=== PATIENT | male | born 1965 | race Caucasian/White ===

== ENCOUNTER 2018-06-23 13:43 | Emergency (ER) | payer OTHER ==
[~2018-06-23] VITALS: Ht 167.6 cm; Wt 94.3 kg
[~2018-06-23 13:43] MED LIST: BUDESONIDE0.5 MG/2 M IH; PROVENTIL3 ML/2.5 M IH; ZITHROMAX Z PACK PO; [UNRECOGNIZED DRUG - OTHER] PO
== END 2018-06-23 17:20 | disposition home or self-care (01) ==
LOC: ER 13:43
DX: S82.891A Other fracture of right lower leg, initial encounter for closed fracture (principal); S93.491A Sprain of other ligament of right ankle, initial encounter; X50.3XXA Overexertion from repetitive movements, initial encounter; Y93.89 Activity, other specified; Y92.098 Other place in other non-institutional residence as the place of occurrence of the external cause; Y99.8 Other external cause status

== ENCOUNTER 2020-01-26 17:58 | Emergency (ER) | payer OTHER ==
[~2020-01-26] VITALS: Ht 167.6 cm; Wt 95.3 kg
[2020-01-26] MEDS ORDERED: LOSARTAN POTASS50 MG PO (18:14)
== END 2020-01-26 22:12 | disposition home or self-care (01) ==
LOC: ER 17:58
DX: R42 Dizziness and giddiness (principal); R51 Headache; M54.2 Cervicalgia; R11.0 Nausea
CPT/HCPCS: 70450; 93005; L0120

== ENCOUNTER 2022-06-08 09:03 | Outpatient (CLI) | payer OTHER ==
[~2022-06-08 09:03] MED LIST changes: +LOSARTAN POTASS50 MG PO
== END 2022-06-08 09:18 | disposition home or self-care (01) ==
LOC: SONOGRAMA 09:03
PROVIDERS: ATTEND Surgery
DX: R31.29 Other microscopic hematuria (principal)

== ENCOUNTER 2022-08-24 18:11 | Emergency (ER) | payer OTHER ==
[~2022-08-24] VITALS: Ht 167.6 cm; Wt 95.3 kg
[2022-08-24] MEDS ORDERED: IRBESARTAN150 MG PO (18:53)
== END 2022-08-25 02:22 | disposition home or self-care (01) ==
LOC: ER 18:11
DX: T18.128A Food in esophagus causing other injury, initial encounter (principal); R13.19 Other dysphagia; I10 Essential (primary) hypertension; Z20.822 Contact with and (suspected) exposure to COVID-19

== ENCOUNTER 2023-03-04 11:00 | Day surgery (SDC) | payer OTHER ==
[~2023-03-04 11:00] MED LIST changes: +IRBESARTAN150 MG PO
== END 2023-03-04 16:05 | disposition home or self-care (01) ==
LOC: AMB-ENDOS 11:00
PROVIDERS: ATTEND Internal Medicine Gastroenterology
DX: K29.60 Other gastritis without bleeding (principal); R13.14 Dysphagia, pharyngoesophageal phase; K44.9 Diaphragmatic hernia without obstruction or gangrene; K20.90 Esophagitis, unspecified without bleeding; Z20.822 Contact with and (suspected) exposure to COVID-19

== ENCOUNTER → 2023-05-25 | Emergency (ER) | payer OTHER ==
[~2023-05-25] VITALS: Ht 167.6 cm; Wt 95.3 kg
== END | disposition home or self-care (01) ==
LOC: ER 09:04
DX: S80.11XA Contusion of right lower leg, initial encounter (principal); W10.8XXA Fall (on) (from) other stairs and steps, initial encounter; Y93.89 Activity, other specified; Y92.018 Other place in single-family (private) house as the place of occurrence of the external cause; Y99.9 Unspecified external cause status; I10 Essential (primary) hypertension